=== PATIENT | male | born 1955 | race Caucasian/White ===

== ENCOUNTER 2018-02-12 21:45 | Inpatient (IN) | payer OTHER ==
[~2018-02-12] VITALS: Ht 188 cm; Wt 108.0 kg
[~2018-02-12 21:45] MED LIST: ASPIRIN81 MG PO; FISH OIL PO; GINKGO BILOBA PO; LUNESTA3 MG PO; PANTOPRAZOLE SO40 MG PO; RANITIDINE HCL150 MG PO; SIMVASTATIN PO; SYNTHROID PO; SYNTHROID25 MCG PO; VITAMIN D32000 UNIT PO
[2018-02-12] MEDS ORDERED: ALBUTEROL SULF 0.083% NEB SOLN 3 ML NEB NEB STA (21:50)
[2018-02-12] MEDS ORDERED: SODIUM CHLORIDE 0.9% 1000ML 1,000 ML ONE (21:52)
[2018-02-12] MEDS ORDERED: METHYLPREDNISOLONE SOD SUCC 125 MG/2ML VIAL ONE (21:52)
[2018-02-12] MEDS ORDERED: IPRATROPIUM BROMIDE 0.02% 2.5 ML NEB NEB ONE (22:00)
[2018-02-12] MEDS ORDERED: SODIUM CHLORIDE 0.9% 1000ML 1,000 ML IV ONE (22:00)
[2018-02-12] MEDS ORDERED: METHYLPREDNISOLONE SOD SUCC 125 MG/2ML VIAL IV ONE (22:00)
[2018-02-12 22:05] LABS: BASOPHILS # (AUTO) 0.1 (0.0-0.1); BASOPHILS % 0.8 % (0.0-1.0); EOSINOPHILS # (AUTO) 1.3 (0.0-0.4); EOSINOPHILS % 11.2 % (0.0-6.0); HEMATOCRIT 41.3 % (38.2-49.6); HEMOGLOBIN 13.9 g/dL (14.0-18.0); LYMPHOCYTES # (AUTO) 2.3 (1.0-3.2); LYMPHOCYTES % 19.1 % (18.0-39.1); MEAN CORPUSCULAR HGB CONC 33.7 g/dL (31-35); MONOCYTES # (AUTO) 1.4 (0.2-0.8); MONOCYTES % 11.4 % (4.4-11.3); NEUTROPHILS # (AUTO) 6.8 (2.1-6.9); NEUTROPHILS % 57.1 % (38.7-80.0); PLATELET COUNT 290 x10e3/uL (140-360); RED BLOOD COUNT 4.49 x10e6/uL (4.3-5.7); RED CELL DISTRIBUTION WIDTH 13.2 % (11.7-14.4)
[2018-02-12 22:25] LABS: ALBUMIN 3.9 g/dL (3.5-5.0); ALBUMIN/GLOBULIN RATIO 1.1 (0.8-2.0); CALCIUM 9.6 mg/dL (8.4-10.2); CREATININE, SERUM 1.31 mg/dL (0.72-1.25)
[2018-02-12 22:31] LABS: CREATINE KINASE MB 8.5 ng/mL (0-5.0)
--- NOTE | 2018-02-12 22:35 | Diagnostic Imaging Report ---
EXAM: CHEST SINGLE (PORTABLE), AP 1 view INDICATION: Shortness of breath COMPARISON: None FINDINGS: LINES/TUBES: None LUNGS: No consolidations or edema. PLEURA: No effusions or pneumothorax. HEART AND MEDIASTINUM: Normal size and contour. BONES AND SOFT TISSUES: No acute findings. IMPRESSION: No acute thoracic abnormality. Signed by: Dr. Lisa Leblanc M.D. on 02/12/2018 10:31 PM
[2018-02-12] MEDS ORDERED: SYNTHROID50 MCG PO (23:06)
[2018-02-12] MEDS ORDERED: PREDNISONE20 MG PO (23:10)
[2018-02-12] MEDS ORDERED: VENTOLIN HFA18 GM INH (23:10)
[2018-02-12] MEDS ORDERED: MUCINEX DM ER1 EACH PO (23:10)
[2018-02-12] MEDS ORDERED: KRILL OIL 1,001 EACH PO (23:11)
[2018-02-12] MEDS ORDERED: SODIUM CHLORIDE 0.9% 1000ML 1,000 ML IV SCH (23:15)
[2018-02-12] MEDS: AZITHROMYCIN 500MG/SOD CHL 0.9% 250ML BAG IV SCH (23:21)
[2018-02-12] MEDS: METHYLPREDNISOLONE SOD SUCC 40 MG/ML VIAL IV SCH (23:29)
[2018-02-12] MEDS ORDERED: GUAIFENESIN 600MG/DEXTROMETHORPHAN 30MG TABSR PO PRN (23:30)
[2018-02-12 23:55] VITALS: BP 149/79
[2018-02-13] VITALS: BP 149/79
[2018-02-13] MEDS: ALBUTEROL/IPRATROPIUM 3 ML NEB NEB SCH ×6 (03:30→22:45)
[2018-02-13 04:00] VITALS: BP 127/69
[2018-02-13] MEDS: LEVOTHYROXINE SODIUM 50 MCG TAB PO SCH (05:30)
[2018-02-13] MEDS: METHYLPREDNISOLONE SOD SUCC 40 MG/ML VIAL IV SCH ×2 (05:30→16:57)
[2018-02-13 05:48] LABS: BASOPHILS % 0.3 % (0.0-1.0); EOSINOPHILS % 0.1 % (0.0-6.0); HEMATOCRIT 36.5 % (38.2-49.6); LYMPHOCYTES # (AUTO) 0.4 (1.0-3.2); LYMPHOCYTES % 4.9 % (18.0-39.1); MEAN CORPUSCULAR HEMOGLOBIN 30.9 pg (28-32); MEAN CORPUSCULAR HGB CONC 32.9 g/dL (31-35); MEAN CORPUSCULAR VOLUME 94.1 fL (81-99); MONOCYTES # (AUTO) 0.1 (0.2-0.8); NEUTROPHILS # (AUTO) 6.7 (2.1-6.9); NEUTROPHILS % 93.4 % (38.7-80.0); PLATELET COUNT 240 x10e3/uL (140-360); RED BLOOD COUNT 3.88 x10e6/uL (4.3-5.7); RED CELL DISTRIBUTION WIDTH 13.2 % (11.7-14.4)
[2018-02-13 06:04] LABS: CREATINE KINASE 251 IU/L (30-200)
[2018-02-13 06:18] LABS: ANION GAP 14.8 mmol/L (8-16); BLOOD UREA NITROGEN 12 mg/dL (7-26); BUN/CREATININE RATIO 12 (6-25); CALCIUM 8.8 mg/dL (8.4-10.2); CARBON DIOXIDE 24 mmol/L (22-29); CHLORIDE 107 mmol/L (98-107); CREATININE, SERUM 1.03 mg/dL (0.72-1.25); EST GLOMERULAR FILTRATION RATE > 60 ML/MIN (60-); GLUCOSE 172 mg/dL (74-118); POTASSIUM 4.8 mmol/L (3.5-5.1); SODIUM 141 mmol/L (136-145)
[2018-02-13 07:07] VITALS: BP 144/77
[2018-02-13 07:52] VITALS: BP 144/77
[2018-02-13] MEDS ORDERED: ALBUTEROL SULFATE HFA 8GM INHALATION AEROSOL INH PRN ×2 (08:15→08:45)
--- NOTE | 2018-02-13 08:51 | Pre Op History & Physical ---
CHIEF COMPLAINT: Dyspnea and congestion. HISTORY OF PRESENT ILLNESS: Patient is a 62-year-old man. He has a history of COPD and chronic bronchitis. He uses bronchodilators at home. After traveling to work on his house in [place], he noted worsening congestion and dyspnea. He had wheezing. It was not relieved with nebulizers at home. It was not relieved with prednisone. He subsequently came to the emergency department and received Solu-Medrol nebulizers. He had some improvement in the wheezing but still complains of dyspnea. PAST MEDICAL HISTORY 1. COPD. 2. Prior cardiac workup 4 years ago showed a normal echocardiogram and a normal stress test. PAST SURGICAL HISTORY: History of prior knee surgery. SOCIAL HISTORY: The patient is not smoking at this time. He is not a drinker. FAMILY HISTORY: Family history is noncontributory. ALLERGIES: THE PATIENT IS ALLERGIC TO SULFA. REVIEW OF SYSTEMS: There was no fever. He did not have headache or sinus congestion. He has no sore throat. There is no neck pain. He did not have chest pain. He had wheezing and cough as well as dyspnea. There was no abdominal pain. He had no nausea or vomiting. He had no leg edema. PHYSICAL EXAMINATION VITAL SIGNS: The patient is afebrile. The vital signs are stable. HEENT: Shows no facial swelling or erythema. The nasal mucosa is normal. The oropharynx is normal. LYMPHATIC: Shows no submandibular, cervical or supraclavicular adenopathy. CARDIAC: Reveals a regular rate and rhythm with a normal S1 and S2. There are no murmurs or rubs. LUNGS: Auscultation of the lungs reveals prolonged expiratory phase with a few wheezes. ABDOMEN: Soft and nontender. There is no rebound or guarding. EXTREMITIES: Show no leg edema or calf tenderness. There is no cyanosis or clubbing. SKIN: Shows no rashes. NEUROLOGIC: Shows no focal abnormalities. IMPRESSIONS 1. Chronic obstructive pulmonary disease with acute exacerbation. 2. Dyspnea. PLANS 1. Solu-Medrol at 1 mg per kg along with bronchodilators. 2. Cardiac evaluation to rule out any cardiac causes of dyspnea. 3. CT scan of the chest with the pulmonary angiogram protocol to rule out PE. Job#: [id number] BELEM
[2018-02-13] MEDS ORDERED: SIMVASTATIN 20 MG PO SCH (09:00)
[2018-02-13] MEDS ORDERED: DHA PO SCH (09:00)
[2018-02-13] MEDS ORDERED: ASTX PO SCH (09:00)
[2018-02-13] MEDS ORDERED: [UNRECOGNIZED DRUG - OTHER] PO SCH (09:00)
[2018-02-13] MEDS ORDERED: LIP PO SCH (09:00)
[2018-02-13] MEDS ORDERED: KRILL PO SCH (09:00)
[2018-02-13] MEDS ORDERED: EPA PO SCH (09:00)
[2018-02-13] MEDS: PANTOPRAZOLE SOD 40 MG TABEC PO SCH (09:36)
[2018-02-13] MEDS: OMEGA 3 POLYUNSAT FATTY ACIDS 1000 MG SOFTGEL PO SCH (09:36)
[2018-02-13] MEDS: CHOLECALCIFEROL PO SCH (10:30)
[2018-02-13 10:48] LABS: LYMPHOCYTES % (MANUAL) 1 % (19-48); MONOCYTES % (MANUAL) 1 % (3.4-9.0); NEUTROPHILS % (MANUAL) 98 % (40-74)
[2018-02-13 10:49] LABS: PLATELET ESTIMATE ADEQUATE; PLATELET MORPHOLOGY COMMENT NORMAL; RBC MORPHOLOGY COMMENT NORMAL
[2018-02-13 11:38] LABS: CHOL/HDL RATIO 2.4 (3.9-4.7)
--- NOTE | 2018-02-13 12:23 | Consultation ---
DATE OF CONSULTATION: February 13, 2018 CARDIOLOGY CONSULTATION ATTENDING PHYSICIAN: Dr. Prieto Gay. Thank you very much for asking me to see this nice man again in consultation. Mr. 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 HISTORY OF PRESENT ILLNESS: Patient reports he has been described as having bronchitis and COPD. He found his shortness of breath was getting worse with cough and some sputum production. He denies any chest pain or palpitations or ankle edema. PAST MEDICAL HISTORY: Significant for diagnosis of COPD in recent years. He is known to have hyperlipidemia and has had some gout attacks. CURRENT MEDICATIONS: Include Synthroid 150 mcg daily for hypothyroidism and Protonix. He has used some steroids intermittently. He has fish oil capsules and inhalers. He has had previous ER visits for gout. PERSONAL AND SOCIAL HISTORY: The patient reports that he finally stopped smoking about 4 months ago. FAMILY HISTORY: Not relevant. REVIEW OF SYSTEMS CARDIAC: Patient had cardiac evaluation in February 2015 with stress test, which was negative and echocardiogram, which showed mild LVH and EF about 63%. VASCULAR: Patient reports he sometimes has some leg cramping. PHYSICAL EXAMINATION GENERAL: At this time shows a pleasant and alert man, who is awake and responsive. VITAL SIGNS: Blood pressure 140/70. He is wearing nasal cannula oxygen. NECK: No jugular venous distention. THORAX: Heart sounds S1 and S2 are equal. No murmurs. LUNGS: Have faint wheezing and rhonchi that change with cough. ABDOMEN: Normal bowel sounds. EXTREMITIES: No cyanosis, clubbing, or edema. Distal pulses are reduced. LABORATORY AND DIAGNOSTIC DATA: EKG shows sinus rhythm with sinus tachycardia. Troponins are negative x2. Today, his glucose is 172. His BNP is less than 10. Chest x-ray does not show any infiltrates. ASSESSMENT 1. Bronchitis/chronic obstructive pulmonary disease. 2. Hypothyroidism. 3. Rule out congestive heart failure, although his BNP is less than 10. 4. History of gout. 5. Rule out peripheral vascular disease. PLAN: Agree with current management and we will check echocardiogram and arterial Doppler scan of the legs and lipid profile. Further management based on clinical course. Thank you for asking me to see him in consultation. Job#: [id number] VAS cc:DR PRIETO CUENCA
--- NOTE | 2018-02-13 14:46 | Diagnostic Imaging Report ---
EXAM: CT Chest WITH contrast (PE Protocol) INDICATION: \S\Evaluate for PE \S\[id number] \S\1350 COMPARISON: Chest x-ray on 02/12/2018 TECHNIQUE: Chest was scanned utilizing a multidetector helical scanner from the lung apex through the level of the diaphragm after administration of IV contrast. Thin section reconstructions were obtained with special concentration on the pulmonary arteries. Coronal and sagittal reformations were obtained. Pulmonary embolism protocol was performed. IV CONTRAST: 100 mL of Isovue-370 COMPLICATIONS: None RADIATION DOSE: Total DLP: 552.37 mGy*cm Estimated effective dose: (DLP x 0.014 x size factor) mSv CTDIvol has been reviewed. It is below the limits set by the Radiation Protocol Committee (RPC). FINDINGS: LINES/ TUBES: None. LUNGS AND AIRWAYS: Suboptimal opacification of the pulmonary arteries. Within this context, there is no definite central filling defects visualized. Limited for evaluation of segmental and subsegmental branches. 3 mm lateral right middle lobe nodule (series 3, image 89). Airways are normal. PLEURA: The pleural spaces are clear. Few focal areas of pleural thickening versus subsegmental atelectasis, for example in left upper lobe (series 2, image 31) or posterior right upper lobe (2/34). HEART AND MEDIASTINUM: The thyroid gland is normal. No mediastinal, hilar or axillary lymphadenopathy. The heart is normal in size.. There is no pericardial effusion. . Main pulmonary artery measures cm in diameter and the ascending aorta measures cm. UPPER ABDOMEN: Multiple hepatic hypodensities, cannot be characterized on this single phase study. BONES: Unremarkable. Degenerative changes of spine. SOFT TISSUES: Unremarkable. IMPRESSION: 1. Suboptimal opacification of the pulmonary arteries. Within this context, there is no definite central filling defects visualized. Limited for evaluation of segmental and subsegmental branches. 2. Hepatic hypodensities, which cannot be characterized with certainty on this single phase study. If clinically indicated, nonurgent right upper quadrant ultrasound can be obtained for further characterization. 3. 3 mm nonspecific right middle lobe lung nodule. Without risk factors, no follow-up is necessary. With risk factors, follow-up with low dose chest CT in one year is recommended. Signed by: Dr. Jean Conde MD on 02/13/2018 2:43 PM
[2018-02-13] MEDS ORDERED: SODIUM CHLORIDE 0.9% 50ML 50 ML ONE (14:54)
[2018-02-13] MEDS ORDERED: IOPAMIDOL 370 MG/ML 200 ML INFUS..BTL INJ ONE (14:55)
[2018-02-13 16:21] LABS: CREATINE KINASE MB 8.6 ng/mL (0-5.0)
[2018-02-13 19:55] VITALS: BP 144/77
[2018-02-13 20:51] VITALS: BP 133/63
[2018-02-13] MEDS ORDERED: SODIUM CHLORIDE 0.9% 250ML 250 ML ONE (21:54)
[2018-02-13] MEDS: SIMVASTATIN 20 MG TAB PO SCH (21:55)
[2018-02-13] MEDS: AZITHROMYCIN 500MG/SOD CHL 0.9% 250ML BAG IV SCH (23:15)
[2018-02-14] VITALS (7 sets, daily range): BP systolic 121–156; BP diastolic 60–72
[2018-02-14] MEDS: ALBUTEROL/IPRATROPIUM 3 ML NEB NEB SCH ×6 (02:45→23:45)
[2018-02-14] MEDS: METHYLPREDNISOLONE SOD SUCC 40 MG/ML VIAL IV SCH ×2 (06:00→17:23)
[2018-02-14] MEDS: LEVOTHYROXINE SODIUM 50 MCG TAB PO SCH (06:11)
[2018-02-14] MEDS: CHOLECALCIFEROL PO SCH (07:34)
[2018-02-14] MEDS: PANTOPRAZOLE SOD 40 MG TABEC PO SCH (07:34)
[2018-02-14] MEDS: OMEGA 3 POLYUNSAT FATTY ACIDS 1000 MG SOFTGEL PO SCH (07:34)
[2018-02-14] MEDS: SIMVASTATIN 20 MG TAB PO SCH (21:30)
[2018-02-14] MEDS: AZITHROMYCIN 500MG/SOD CHL 0.9% 250ML BAG IV SCH (23:15)
[2018-02-15] VITALS: BP 115/63
[2018-02-15] MEDS: ALBUTEROL/IPRATROPIUM 3 ML NEB NEB SCH ×3 (03:30→11:00)
[2018-02-15 04:00] VITALS: BP 146/68
[2018-02-15] MEDS: METHYLPREDNISOLONE SOD SUCC 40 MG/ML VIAL IV SCH (06:00)
[2018-02-15] MEDS: LEVOTHYROXINE SODIUM 50 MCG TAB PO SCH (06:17)
[2018-02-15 07:35] VITALS: BP 146/70
[2018-02-15 07:39] VITALS: BP 146/70
[2018-02-15] MEDS: CHOLECALCIFEROL PO SCH (09:00)
[2018-02-15] MEDS: OMEGA 3 POLYUNSAT FATTY ACIDS 1000 MG SOFTGEL PO SCH (09:12)
[2018-02-15] MEDS: PANTOPRAZOLE SOD 40 MG TABEC PO SCH (09:12)
[2018-02-15 11:29] VITALS: BP 150/71
== END 2018-02-15 11:44 | disposition home or self-care (01) | DRG 192 ==
LOC: ER 21:45 → ERHOLD 23:03 → IMCU 23:25 → OBSVTOIN 02-13 08:13 → MED/SURG3 02-13 10:14
PROVIDERS: ADMIT Internal Medicine Critical Care Medicine; ATTEND Internal Medicine Critical Care Medicine
DX: J44.1 Chronic obstructive pulmonary disease with (acute) exacerbation (principal); J20.9 Acute bronchitis, unspecified; J44.0 Chronic obstructive pulmonary disease with (acute) lower respiratory infection; R06.00 Dyspnea, unspecified; I73.9 Peripheral vascular disease, unspecified; I50.9 Heart failure, unspecified; Z87.891 Personal history of nicotine dependence; Z82.49 Family history of ischemic heart disease and other diseases of the circulatory system; Z88.2 Allergy status to sulfonamides; E78.5 Hyperlipidemia, unspecified; E03.9 Hypothyroidism, unspecified; M10.9 Gout, unspecified
CPT/HCPCS: 36415; 71045; 71260; 80048; 80053; 80061; 82550; 82553; 83880; 84484; 85025; 93005; 93306; 93925; 94640; 94644; 96374; 99284; G0378; J0456; J2920; J2930; J7030; J7050; Q9967

== ENCOUNTER 2018-04-14 06:59 | Inpatient (IN) | payer OTHER ==
[~2018-04-14] VITALS: Ht 188 cm; Wt 99.3 kg
[~2018-04-14 06:59] MED LIST changes: +KRILL OIL 1,001 EACH PO; +MUCINEX DM ER1 EACH PO; +PREDNISONE20 MG PO; +SYNTHROID50 MCG PO; +VENTOLIN HFA18 GM INH
[2018-04-14] MEDS ORDERED: ALBUTEROL/IPRATROPIUM 3 ML NEB NEB ONE (07:15)
[2018-04-14 07:22] LABS: BASOPHILS # (AUTO) 0.1 (0.0-0.1); BASOPHILS % 0.6 % (0.0-1.0); EOSINOPHILS # (AUTO) 1.1 (0.0-0.4); EOSINOPHILS % 11.8 % (0.0-6.0); HEMATOCRIT 42.6 % (38.2-49.6); HEMOGLOBIN 14.3 g/dL (14.0-18.0); LYMPHOCYTES # (AUTO) 1.5 (1.0-3.2); LYMPHOCYTES % 16.5 % (18.0-39.1); MEAN CORPUSCULAR HEMOGLOBIN 30.9 pg (28-32); MEAN CORPUSCULAR HGB CONC 33.6 g/dL (31-35); MONOCYTES # (AUTO) 1.2 (0.2-0.8); MONOCYTES % 12.5 % (4.4-11.3); NEUTROPHILS # (AUTO) 5.4 (2.1-6.9); NEUTROPHILS % 58.3 % (38.7-80.0); PLATELET COUNT 267 x10e3/uL (140-360); RED BLOOD COUNT 4.63 x10e6/uL (4.3-5.7)
[2018-04-14 07:40] LABS: ALANINE AMINOTRANSFERASE 21 IU/L (0-55); ALBUMIN 3.8 g/dL (3.5-5.0); ALBUMIN/GLOBULIN RATIO 1.1 (0.8-2.0); ALKALINE PHOSPHATASE 52 IU/L (40-150); ANION GAP 16.4 mmol/L (8-16); BLOOD UREA NITROGEN 12 mg/dL (7-26); BUN/CREATININE RATIO 12 (6-25); CALCIUM 9.8 mg/dL (8.4-10.2); CARBON DIOXIDE 23 mmol/L (22-29); CHLORIDE 105 mmol/L (98-107); CREATINE KINASE 187 IU/L (30-200); CREATININE, SERUM 0.99 mg/dL (0.72-1.25); EST GLOMERULAR FILTRATION RATE > 60 ML/MIN (60-); GLUCOSE 107 mg/dL (74-118); POTASSIUM 4.4 mmol/L (3.5-5.1); SODIUM 140 mmol/L (136-145)
[2018-04-14] MEDS ORDERED: ALBUTEROL SULF 0.083% NEB SOLN 3 ML NEB NEB STA (07:54)
[2018-04-14] MEDS ORDERED: IPRATROPIUM BROMIDE 0.02% 2.5 ML NEB NEB ONE (08:00)
[2018-04-14 08:30] LABS: ABG HCO3 31 mmol/L (23-28); ABG PCO2 48 mmHg (41-51); ABG PH 7.42 (7.31-7.41); ABG PO2 333 mmHg (80-105)
[2018-04-14] MEDS ORDERED: LEVOFLOXACIN 500MG/D5W 100ML IV SCH (09:30)
--- NOTE | 2018-04-14 09:48 | Diagnostic Imaging Report ---
PROCEDURE: CHEST SINGLE (PORTABLE) COMPARISON: None. INDICATIONS: COUGH,SHORTNESS OF BREATH FINDINGS: LUNGS: The lungs are hyperexpanded. No consolidations or edema. PLEURA: No effusions or pneumothorax. HEART \T\ MEDIASTINUM: The heart is within normal size-limits. BONES \T\ SOFT TISSUES: No acute findings. CONCLUSION: No acute thoracic abnormality. Calos Rizvi D.O. Dictated by: Calos Rizvi D.O. on 04/14/2018 at 9:55 Electronically approved by: Calos Rizvi D.O. on 04/14/2018 at 9:55
[2018-04-14 11:59] VITALS: BP 153/77
[2018-04-14] MEDS ORDERED: SODIUM CHLORIDE 0.9% 250ML 250 ML ONE (12:10)
[2018-04-14] MEDS ORDERED: GUAIFENESIN 600MG/DEXTROMETHORPHAN 30MG TABSR PO PRN (13:15)
[2018-04-14] MEDS ORDERED: ALBUTEROL SULFATE HFA 8GM INHALATION AEROSOL INH PRN (13:15)
[2018-04-14] MEDS ORDERED: METHYLPREDNISOLONE SOD SUCC 125 MG/2ML VIAL IV SCH (14:00)
[2018-04-14] MEDS: ALBUTEROL/IPRATROPIUM 3 ML NEB NEB SCH ×2 (14:00→19:40)
[2018-04-14] MEDS: METHYLPREDNISOLONE SOD SUCC 125 MG/2ML VIAL IV SCH ×2 (14:12→20:35)
--- NOTE | 2018-04-14 14:18 | History and Physical ---
CHIEF COMPLAINT: Worsening dyspnea and wheezing. HISTORY OF PRESENT ILLNESS: The patient is a 62-year-old man with a known diagnosis of chronic obstructive pulmonary disease. He uses Spiriva as well as nebulizers at home. Apparently they were doing some work in his house and removed some tiles. He had difficulty breathing because of the increased dust. He noticed worsening wheezing and cough. His cough was productive of some discolored phlegm. PAST MEDICAL HISTORY 1. COPD. 2. Negative cardiac evaluation. PAST SURGICAL HISTORY: Prior knee surgery. SOCIAL HISTORY: The patient smoked previously many years ago but is not smoking at this time. He is not a drinker. FAMILY HISTORY: Family history is noncontributory. ALLERGIES: SULFA MEDICATIONS. REVIEW OF SYSTEMS: There is no fever. He has no headache. He has no sore throat or neck pain. He does not complain of chest pain. He does have dyspnea and wheezing. He notes a cough productive of some discolored phlegm. PHYSICAL EXAMINATION VITAL SIGNS: The patient is afebrile. The blood pressure is 153/77, and the pulse is 94. The O2 saturation is 93% on 2 liters. HEENT: Examination shows no facial swelling or erythema. The nasal mucosa is normal. The oropharynx is normal. LYMPHATIC: Examination shows no submandibular, cervical or supraclavicular adenopathy. NECK: Examination shows no JVD or thyromegaly. There is no nuchal rigidity. CARDIAC: Exam reveals a regular rate and rhythm with a normal S1 and S2. There are no murmurs or rubs. LUNGS: Auscultation reveals wheezing in both lung osborne. There is a prolonged expiratory phase. ABDOMEN: Soft and nontender. There is no rebound or guarding. EXTREMITIES: Examination shows no leg edema or calf tenderness. RADIOGRAPHIC DATA: Chest x-ray shows no active disease. IMPRESSION 1. Chronic obstructive pulmonary disease with acute exacerbation. 2. Hypothyroidism. PLAN 1. Solu-Medrol at 1 mg/kg IV daily. 2. Doxycycline twice daily. 3. Bronchodilators. 4. Alpha-1 antitrypsin level. 5. Out of bed as tolerated. Job#: [id number] EV
[2018-04-14 16:28] VITALS: BP 136/88
[2018-04-14] MEDS: DOXYCYCLINE 100MG/NS 100ML 100 ML IV SCH (16:50)
[2018-04-14 20:00] VITALS: BP 134/74
[2018-04-14 20:30] VITALS: BP 138/70
[2018-04-14] MEDS: SIMVASTATIN 20 MG TAB PO SCH (20:35)
[2018-04-14] MEDS ORDERED: ZOLPIDEM TARTRATE 5 MG TAB PO PRN (21:00)
[2018-04-15] VITALS (8 sets, daily range): BP systolic 124–145; BP diastolic 63–77
[2018-04-15] MEDS: ALBUTEROL/IPRATROPIUM 3 ML NEB NEB SCH ×4 (01:10→19:10)
[2018-04-15 05:08] LABS: BASOPHILS % 0.1 % (0.0-1.0); LYMPHOCYTES # (AUTO) 0.7 (1.0-3.2); LYMPHOCYTES % 6.4 % (18.0-39.1); MEAN CORPUSCULAR HGB CONC 33.3 g/dL (31-35); MEAN CORPUSCULAR VOLUME 92.9 fL (81-99); MONOCYTES # (AUTO) 0.5 (0.2-0.8); PLATELET COUNT 252 x10e3/uL (140-360)
[2018-04-15] MEDS: LEVOTHYROXINE SODIUM 50 MCG TAB PO SCH (05:45)
[2018-04-15] MEDS: DOXYCYCLINE 100MG/NS 100ML 100 ML IV SCH ×2 (05:45→17:58)
[2018-04-15] MEDS: PANTOPRAZOLE SOD 40 MG TABEC PO SCH (07:46)
[2018-04-15] MEDS: CHOLECALCIFEROL 1,000 UNIT TAB PO SCH (08:55)
[2018-04-15] MEDS: METHYLPREDNISOLONE SOD SUCC 125 MG/2ML VIAL IV SCH ×2 (08:55→20:12)
[2018-04-15] MEDS ORDERED: SIMVASTATIN 20 MG PO SCH (09:00)
[2018-04-15] MEDS ORDERED: CHOLECALCIFEROL PO SCH (09:00)
[2018-04-15] MEDS: SIMVASTATIN 20 MG TAB PO SCH (20:12)
[2018-04-16] VITALS (7 sets, daily range): BP systolic 123–145; BP diastolic 67–75
[2018-04-16] MEDS: ALBUTEROL/IPRATROPIUM 3 ML NEB NEB SCH ×4 (01:10→19:30)
[2018-04-16] MEDS: LEVOTHYROXINE SODIUM 50 MCG TAB PO SCH (05:48)
[2018-04-16] MEDS: DOXYCYCLINE 100MG/NS 100ML 100 ML IV SCH ×2 (05:48→17:49)
[2018-04-16 06:02] LABS: BASOPHILS % 0.1 % (0.0-1.0); HEMATOCRIT 38.5 % (38.2-49.6); LYMPHOCYTES # (AUTO) 0.7 (1.0-3.2); LYMPHOCYTES % 5.3 % (18.0-39.1); MEAN CORPUSCULAR HGB CONC 33.8 g/dL (31-35); MEAN CORPUSCULAR VOLUME 91.9 fL (81-99); MONOCYTES # (AUTO) 0.7 (0.2-0.8); MONOCYTES % 5.4 % (4.4-11.3); NEUTROPHILS # (AUTO) 12.1 (2.1-6.9); NEUTROPHILS % 88.7 % (38.7-80.0); PLATELET COUNT 264 x10e3/uL (140-360); RED BLOOD COUNT 4.19 x10e6/uL (4.3-5.7); RED CELL DISTRIBUTION WIDTH 13.9 % (11.7-14.4)
[2018-04-16 06:21] LABS: ALANINE AMINOTRANSFERASE 18 IU/L (0-55); ALBUMIN 3.5 g/dL (3.5-5.0); ALBUMIN/GLOBULIN RATIO 1.3 (0.8-2.0); ALKALINE PHOSPHATASE 38 IU/L (40-150); ANION GAP 14.5 mmol/L (8-16); BLOOD UREA NITROGEN 24 mg/dL (7-26); BUN/CREATININE RATIO 27 (6-25); CALCIUM 9.4 mg/dL (8.4-10.2); CARBON DIOXIDE 25 mmol/L (22-29); CHLORIDE 103 mmol/L (98-107); EST GLOMERULAR FILTRATION RATE > 60 ML/MIN (60-); GLUCOSE 132 mg/dL (74-118); POTASSIUM 4.5 mmol/L (3.5-5.1); SODIUM 138 mmol/L (136-145)
[2018-04-16] MEDS: PANTOPRAZOLE SOD 40 MG TABEC PO SCH (08:55)
[2018-04-16] MEDS: CHOLECALCIFEROL 1,000 UNIT TAB PO SCH (08:55)
[2018-04-16] MEDS: METHYLPREDNISOLONE SOD SUCC 125 MG/2ML VIAL IV SCH ×2 (08:55→20:16)
[2018-04-16] MEDS ORDERED: DEXAMETHASONE SOD PHOS INJ 4 MG/ML VIAL ONE (08:58)
[2018-04-16] MEDS: SIMVASTATIN 20 MG TAB PO SCH (20:16)
[2018-04-17] VITALS: BP 133/80
[2018-04-17] MEDS: ALBUTEROL/IPRATROPIUM 3 ML NEB NEB SCH ×2 (01:12→07:28)
[2018-04-17] MEDS: LEVOTHYROXINE SODIUM 50 MCG TAB PO SCH (05:28)
[2018-04-17] MEDS: DOXYCYCLINE 100MG/NS 100ML 100 ML IV SCH (05:28)
[2018-04-17 05:59] VITALS: BP 130/71
[2018-04-17 07:05] VITALS: BP 142/65
[2018-04-17] MEDS: CHOLECALCIFEROL 1,000 UNIT TAB PO SCH (08:30)
[2018-04-17] MEDS: METHYLPREDNISOLONE SOD SUCC 125 MG/2ML VIAL IV SCH (08:30)
[2018-04-17] MEDS: PANTOPRAZOLE SOD 40 MG TABEC PO SCH (08:30)
[2018-04-17 08:38] VITALS: BP 142/65
[2018-04-17 11:18] VITALS: BP 143/73
[2018-04-17] MEDS ORDERED: SYMBICORT 16010.2 GM INH (12:48)
[2018-04-17] MEDS ORDERED: FLUCONAZOLE100 MG PO (12:49)
[2018-04-17] MEDS ORDERED: DOXYCYCLINE HY100 MG PO (12:49)
--- NOTE | 2018-04-17 16:06 | Discharge Summary ---
DISCHARGE DIAGNOSES 1. Chronic obstructive pulmonary disease with acute exacerbation. 2. Hypothyroidism. 3. Oral thrush. RADIOGRAPHIC DATA: Chest x-ray shows no active disease. HISTORY OF PRESENT ILLNESS: The patient is a 62-year-old man with a history of moderate obstructive lung disease. He uses Spiriva at home as well as nebulizers. He started having more problems breathing after he was removed to the floor in his house. He noticed increasing coughing and wheezing. It was not relieved with nebulizer. HOSPITAL COURSE: Patient was admitted. The patient was started on IV Solu-Medrol along with antibiotics. Patient also received aggressive bronchodilators. Patient had some gradual improvement with this. After 2 to 3 days he felt much better and was eager to go home. The patient is also experiencing some oral thrush that started on the day of discharge. He does not report any acid reflux or heartburn. DISPOSITION: The patient is discharged home and will follow up with Drs. Gay and David. CHARLES GAY MD Job#: [id number] GH cc:MONSE CUENCA MD
== END 2018-04-17 13:05 | disposition home or self-care (01) | DRG 191 ==
LOC: ER 06:59 → ERHOLD 09:44 → IMCU 10:21 → OBSVTOIN 04-15 12:21 → MED/SURG 04-15 14:33
PROVIDERS: ADMIT Internal Medicine Critical Care Medicine; ATTEND Internal Medicine Critical Care Medicine
DX: J44.1 Chronic obstructive pulmonary disease with (acute) exacerbation (principal); B37.0 Candidal stomatitis; E03.9 Hypothyroidism, unspecified; Z87.891 Personal history of nicotine dependence
CPT/HCPCS: 36415; 36600; 71045; 80053; 82103; 82550; 82553; 82805; 83605; 83880; 84484; 85025; 87040; 93005; 94640; 94660; 99285; G0378; J1100; J1956; J2930; J7050

== ENCOUNTER 2018-09-06 09:46 | Emergency (ER) | payer OTHER ==
[~2018-09-06] VITALS: Ht 190.5 cm; Wt 103.4 kg
[~2018-09-06 09:46] MED LIST changes: +DOXYCYCLINE HY100 MG PO; +FLUCONAZOLE100 MG PO; +SYMBICORT 16010.2 GM INH
--- OUTSIDE RECORDS SUMMARY | 2018-09-06 09:48 | XMS REPORT | Continuity of Care Document ---
Author Author [facility] Organization [facility] Address [address] [address] ;ext= Care Team Providers Care Wheel Fitter Name Role Phone EVELIA TORRES Admphys EVELIA TORRES Attphys Hospital Admission Diagnosis Code Admission Diagnosis Date [id number] Cough Social History Element Description Code Description Smoking Status Code System Start Date End Date Smoking Status [id number] Never smoker SNOMED-CT Problems * No data in the system Medications RxNorm Medication Dose Route Instructions Indications Start Date End Date Status 670806 Acetaminophen 300 MG / Codeine Phosphate 60 MG Oral Tablet 1 tablet oral orally every 4 to 6 hours as needed. (as needed for pain) Active 771719 cefdinir 300 MG Oral Capsule 300 milligram oral orally every 12 hours (10 days) Active 062187 Methylprednisolone 4 MG Oral Tablet 1 package oral orally Per package directions Active 8640 Prednisone 40 milligram oral orally every day (5 days) (administer with food or milk) Active Allergies Code Code System Allergy Substance Type Reaction Severity Start Date End Date Status 69582 RXNorm Sulfa(Sulfonamide Antibiotics) Drug allergy Unknown Active Results Radiology Results Order: [id number] ED2 XR CHEST 2 PA LATERAL* Exam Completion Date:08/08/2018 07:47 Procedure: ED2 XR CHEST 2 PA LATERAL Order Date: 08/08/2018 7:47 AMOrde ring Provider: EVELIA Nobleinical Indication: [id number]: CoughComparison: NoneFi ndings: Cardiac size is normal. Pulmonary vasculature is normal.Mediastinal cont our is normal. Aortic contour is normal. There is no consolidation or effusion. There is no mass or pneumothorax.There is no evidence of active tuberculosis.The re is thoracic dextroscoliosis.Impression: 1. No acute abnormality in the chest. 2. Thoracic scoliosis.3. Exam is otherwise negative.This final report was electr onically signed by Dr Kodi Villela MD 08/08/20187:56 AMDictated By: GILBERTO VILLELADate: 08/08/2018 07:56 Vital Signs Vitals Value Date Body Temperature 98.7 F 08/08/2018 Pulse Rate 90 (beats)/min 08/08/2018 Respiratory Rate 18 (breaths)/min 08/08/2018 O2% BldC Oximetry 99 % 08/08/2018 BP Systolic 151 mmHg 08/08/2018 BP Diastolic 82 mmHg 08/08/2018 Height 63 in 08/08/2018 Weight Measured 229.28 lbs 08/08/2018 BSA (Body Surface Area) 2.77019 m2 08/08/2018 BMI (Body Mass Index) 40.6 kg/m2 08/08/2018 Advance Directives Patient does NOT have Living Will Directive Type Effective Date Baseball Pitcher Notes Supporting Document Name Address Phone No Directive Type specified 11/28/2015 14:09 Not Specified Not Specified Not Specified None No Family History * No Data Reported Plan of Care * No data in the system Procedures Code Code System Procedure Name Target Site Date of Procedure ED2 XR CHEST 2 PA LATERAL 08/08/2018 08:03 Encounters Date Code Diagnosis Status (ICD10) - J440 COPD W/ACUTE LOWER RESPIRATORY INF Active Immunizations * No data in the system Functional Status * No data in the system Hospital Discharge Instructions * Discharge Instructions 2* Discharge Diagnosis* Chronic Bronchitis * Important Information* Consult your physician or return to the Emergency Department immediately if worse, if not better as expected, or if any problems arise. * Follow Up Care* Yes * Important Information* Please understand that you have received care only on an emergency basis. If your condition does not improve, you should call your personal physician for follow-up care. If you do not have a physician, you may call the referred physician listed. * If you have questions about your care or these discharge instructions, you may call the Emergency Department. Please take your discharge paperwork with you to any follow-up appointments. * Follow-Up With:* Primary Care Physician * Diet* Regular * Prescriptions Given Via:* Printed and given to patient/caregiver. * Patient Teaching* Patient education provided
[2018-09-06] MEDS ORDERED: ALBUTEROL SULF 0.083% NEB SOLN 3 ML NEB NEB STA (10:20)
[2018-09-06] MEDS ORDERED: MAGNESIUM SULFATE 2GM/50ML 50 ML IV ONE (10:30)
[2018-09-06] MEDS ORDERED: DEXAMETHASONE SOD PHOS 10 MG/1 ML VIAL IV ONE (10:30)
--- NOTE | 2018-09-06 11:13 | Diagnostic Imaging Report ---
EXAM: CXR 2 VIEW - HOPD, PA and lateral DATE: 09/06/2018 Time stamp on exam: 10:53 AM INDICATION: Congestion COMPARISON: None FINDINGS: LINES/TUBES: None LUNGS: No consolidations or edema. PLEURA: No effusions or pneumothorax. HEART AND MEDIASTINUM: Normal size and contour. Tortuous thoracic aorta. BONES AND SOFT TISSUES: No acute findings with mild degenerative changes of the spine. IMPRESSION: No acute thoracic abnormality. Signed by: Dr. Calos Rizvi DO on 09/06/2018 11:10 AM
[2018-09-06 12:17] VITALS: BP 155/94
== END 2018-09-06 12:24 | disposition home or self-care (01) ==
LOC: FSED 09:46
DX: R06.09 Other forms of dyspnea (principal); R05 Cough; J44.1 Chronic obstructive pulmonary disease with (acute) exacerbation; Z87.891 Personal history of nicotine dependence
CPT/HCPCS: 71046; 80053; 84484; 85025; 87400; 93005; 99284; J1100; J3475

== ENCOUNTER 2018-12-17 10:14 | Emergency (ER) | payer OTHER ==
[~2018-12-17] VITALS: Ht 188 cm; Wt 100.4 kg
--- OUTSIDE RECORDS SUMMARY | 2018-12-17 10:17 | XMS REPORT | Continuity of Care Document ---
Author Author [facility] Organization [facility] Address [address] [place] [address] ;ext= Care Team Providers Care Operational Risk Consultant Name Role Phone EVELIA TORRES Admphys EVELIA TORRES Attphys Hospital Admission Diagnosis * No data in the System Social History Element Description Code Description Smoking Status Code System Start Date End Date Smoking Status [id number] Light tobacco smoker SNOMED-CT Problems * No data in the system Medications RxNorm Medication Dose Route Instructions Indications Start Date End Date Status 623735 Acetaminophen 300 MG / Codeine Phosphate 60 MG Oral Tablet 1 tablet oral orally every 4 to 6 hours as needed. (as needed for pain) Active 155710 cefdinir 300 MG Oral Capsule 300 milligram oral orally every 12 hours (10 days) Active 664048 cefdinir 300 MG Oral Capsule 300 milligram oral orally every 12 hours Active 144839 Methylprednisolone 4 MG Oral Tablet 1 package oral orally Per package directions Active 8640 Prednisone 40 milligram oral orally every day (administer with food or milk) Active 8640 Prednisone 40 milligram oral orally every day (5 days) (administer with food or milk) Active Allergies Code Code System Allergy Substance Type Reaction Severity Start Date End Date Status 19141 RXNorm Sulfa(Sulfonamide Antibiotics) Drug allergy Unknown Active Results Radiology Results Order: [id number] ED2 XR CHEST 2 PA LATERAL* Exam Completion Date:10/16/2018 11:02 Procedure: ED2 XR CHEST 2 PA LATERAL Order Date: 10/16/2018 11:02 AMOrder ing Provider: EVELIA Nobleinical Indication: [id number]: CoughComparison: August 08, 2018Findings: Lungs are clear. No pleural effusion or pneumothorax. Heart s ize is normal andthe bones are intact. IMPRESSION:No acute pulmonary process. This final report was electronically signed by Dr Jarad Ureña MD 10/16/2018 11:21 AMDictated By: LUCAS UREÑAKDate: 10/16/2018 11:21 Vital Signs Vitals Value Date Body Temperature 98.4 F 10/16/2018 Pulse Rate 84 (beats)/min 10/16/2018 Respiratory Rate 18 (breaths)/min 10/16/2018 O2% BldC Oximetry 98 % 10/16/2018 BP Systolic 148 mmHg 10/16/2018 BP Diastolic 80 mmHg 10/16/2018 Height 70 in 10/16/2018 Weight Measured 222.66 lbs 10/16/2018 BSA (Body Surface Area) 2.11663 m2 10/16/2018 BMI (Body Mass Index) 32.2 kg/m2 10/16/2018 Advance Directives Patient does NOT have Living Will Directive Type Effective Date Plasterer Tender Notes Supporting Document Name Address Phone No Directive Type specified 11/28/2015 14:09 Not Specified Not Specified Not Specified None No Family History * No Data Reported Plan of Care * No data in the system Procedures Code Code System Procedure Name Target Site Date of Procedure ED2 XR CHEST 2 PA LATERAL 10/16/2018 11:27 Encounters * No data in the system Immunizations * No data in the system Functional Status * No data in the system Hospital Discharge Instructions * Discharge Instructions 2* Discharge Diagnosis* COPD exacerabation * Important Information* Consult your physician or [...] with you to any follow-up appointments. * Follow Up Care* Patient To Schedule * Follow-Up With:* Primary Care Physician * Activity Level* As tolerated, unrestricted * Diet* Regular * Prescriptions Given Via:* Printed and given to patient/caregiver. * Patient Teaching* Patient education provided
--- OUTSIDE RECORDS SUMMARY | 2018-12-17 10:17 | XMS REPORT | Continuity of Care Document ---
Author Author [facility] Organization [facility] Address [address] [place] [address] ;ext= Care Team Providers Care Assembler Finger Buffs Name Role Phone PERRY JACOBS Admphys Unavailable PERRY JACOBS Attsimone Unavailable Hospital Admission Diagnosis Code Admission Diagnosis Date [id number] Dyspnea Social History Element Description Code Description Smoking Status Code System Start Date End Date Smoking Status 8659419 Former smoker SNOMED-CT Problems * No data in the system Medications RxNorm Medication Dose Route Instructions Indications Start Date End Date Status 148750 Acetaminophen 300 MG / Codeine Phosphate 60 MG Oral Tablet 1 tablet oral orally every 4 to 6 hours as needed. (as needed for pain) Active 327292 cefdinir 300 MG Oral Capsule 300 milligram oral orally every 12 hours (10 days) Active 310016 cefdinir 300 MG Oral Capsule 300 milligram oral orally every 12 hours Active 412084 Methylprednisolone 4 MG Oral Tablet 1 package oral orally Per package directions Active 8640 Prednisone 40 milligram oral orally every day (administer with food or milk) Active 8640 Prednisone 40 milligram oral orally every day (5 days) (administer with food or milk) Active Allergies Code Code System Allergy Substance Type Reaction Severity Start Date End Date Status 89971 RXNorm Sulfa(Sulfonamide Antibiotics) Drug allergy Unknown Active Results Radiology Results Order: [id number] ED2 XR CHEST 2 PA LATERAL* Exam Completion Date:11/24/2018 09:00 Procedure: ED2 XR CHEST 2 PA LATERAL Order Date: 11/24/2018 9:00 AMOrd ering Provider: PERRY JACOBSClinical Indication: [id number]: CoughComparison: October 16, 2018Findings: Cardiac size is normal. Pulmonary vasculature is normal. Mediastinal contour is normal. Aortic contour is normal. Mild elevation of the l eft hemidiaphragm.There is no consolidation or effusion. There is no mass or pne umothorax.There is no evidence of active tuberculosis.There is no skeletal abnor mality.Impression:1. No consolidation or effusion.2. Mild elevation of left jovi diaphragm.3. No other significant findings.This final report was electronically signed by Dr Kodi Villela MD 11/24/20189:38 AMDictated By: KODI VILLELA.Date : 11/24/2018 09:38 Vital Signs Vitals Value Date Pulse Rate 93 (beats)/min 11/24/2018 Respiratory Rate 14 (breaths)/min 11/24/2018 O2% BldC Oximetry 99 % 11/24/2018 BP Systolic 130 mmHg 11/24/2018 BP Diastolic 85 mmHg 11/24/2018 Body Temperature 98.5 F 11/24/2018 Height 75 in 11/24/2018 Weight Measured 221.01 lbs 11/24/2018 BSA (Body Surface Area) 2.67528 m2 11/24/2018 BMI (Body Mass Index) 27.7 kg/m2 11/24/2018 Advance Directives Patient does NOT have Living Will Directive Type Effective Date Due Diligence Coordinator Notes Supporting Document Name Address Phone No Directive Type specified 11/28/2015 14:09 Not Specified Not Specified Not Specified None No Family History * No Data Reported Plan of Care * No data in the system Procedures Code Code System Procedure Name Target Site Date of Procedure ED2 XR CHEST 2 PA LATERAL 11/24/2018 09:45 Encounters Date Code Diagnosis Status (ICD10) - J441 COPD WITH ACUTE EXACERBATION Active Immunizations * No data in the system Functional Status * No data in the system Hospital Discharge Instructions * Discharge Instructions 2* Discharge Diagnosis* COPD Exac * Important Information* Consult your physician or [...]
[2018-12-17] MEDS ORDERED: PREDNISONE 20 MG TAB PO ONE (11:15)
[2018-12-17] MEDS ORDERED: PREDNISONE 20 MG TAB ONE (11:26)
[2018-12-17 16:47] VITALS: BP 134/68
== END 2018-12-17 11:35 | disposition home or self-care (01) ==
LOC: FSED 10:14
DX: R06.00 Dyspnea, unspecified (principal); J44.1 Chronic obstructive pulmonary disease with (acute) exacerbation
CPT/HCPCS: 99283; J7512